=== PATIENT | female | born 1975 | race Hispanic/Latino ===

== ENCOUNTER 2017-04-14 05:02 | Emergency (ER) | payer SELFPAY ==
[~2017-04-14] VITALS: Ht 157.5 cm; Wt 56.8 kg
[2017-04-14 05:04] VITALS: BP 132/90; PULSE 98; RESP 24; O2SAT 98
--- NOTE | 2017-04-14 06:05 | ED.REPORT ---
HPI-Abd Pain F 40 and Over Date of Service Apr 14, 2017 ED Provider: Doc,Ed MD Patient is a 41 y/o female with a hx of DM presenting to the ER with her spouse c/o abdominal pain onset yesterday afternoon. The pain has been progressively worsening since last night and is localized to her LUQ. The patient reports to be experiencing UTI symptoms onset 3 days ago. Associated symptoms include dysuria, urinary urgency, and urinary frequency. The patient denies back pain, fever, nausea, diarrhea, hematochezia, vomiting, or any other symptoms. She does take pills for diabetes and has not taken any medication to relieve pain. She takes an aspirin daily. The patient does not smoke and has never experienced a kidney stone. Nursing Notes Stated Complaint: ABDOMINAL PAIN Chief Complaint: Female Abdominal Pain Nursing Notes Reviewed: Yes Allergies: Coded Allergies: No Known Allergies (Unverified , 04/14/17) Scheduled Nitrofurantoin Monohyd/M-Cryst (MacroBid) 100 Mg Capsule 100 MG PO BID Scheduled PRN Phenazopyridine (Phenazopyridine) 100 Mg Tablet 100 MG PO TID PRN PRN For Pain General Time Seen by MD: 06:04 Chief Complaint Abdominal pain Hx Obtained From: Patient Arrived By: Walk-in Sudden in Onset?: No Onset Occurred: Yesterday Symptom Duration: Since onset Location: : LUQ Quality: Same as prior Radiation: : Does not radiate Associated with: Reports: Urinary frequency, Urinary tract symptoms Risk Factors )( AAA Risk Stratification No Hypertension, No Smoking Risk factors reviewed Past Medical History Past Medical History Reports: Asthma, Diabetes mellitus Past Surgical History denies Smoking History Never Smoker Ambulatory Status Independent Review of Systems Constitutional: Denies: Fever Cardiovascular: Denies: Chest pain GI: Reports: Abdominal pain, Denies: Diarrhea, Hematochezia, Nausea, Vomiting Female: Reports: Dysuria, Urinary frequency, Urinary urgency, Urination increased Musculoskeletal: Denies: Back pain Complete sys rev & neg: except as marked. Physical Exam Vital Signs Vital Signs (First) Date Time Temp Pulse Resp B/P Pulse Ox O2 Delivery O2 Flow Rate FiO2 04/14/17 05:04 36.9 98 24 132/90 98 Room Air Initial VS: Reviewed, Vital signs normal Head / Eyes: Atraumatic, Normocephalic Neck: Supple, Full range of motion Skin: Warm, Dry, No cyanosis Neurologic: Alert, Oriented, Nonfocal Psychiatric: Mood/affect normal, Behavior normal, Normal thought content General/Constitutional: Awake, Alert, Cooperative Respiratory / Chest: Breath sounds NL, Breath sounds = bilat, No respiratory distress, No rales, No rhonchi, No wheezing, No stridor Cardiovascular: Heart sounds NL, No murmurs Heart Rate / Rhythm: Positive: Tachycardia (mild) Abdomen: Atraumatic Lower abdominal tenderness with some guarding Back: Inspection NL, Non-tender, No CVA tenderness Head / Eyes: Atraumatic, Normocephalic, PERRL Skin: Color NL, Warm, Dry Lower Extremity / Pelvis / MS: No edema Interpretation & Diagnostics Lab Results Interpretation Test 04/14/17 05:44 Urine Color Straw (YELLOW) Urine Appearance Cloudy (CLEAR,HAZY) Urine pH 7.0 (5.0-8.0) Urine Specific [place] 1.030 (1.003-1.035) Urine Protein 30mg/dL (NEG,TRACE) Urine Glucose (UA) >1000mg/dL (NEGATIVE) Urine Ketones 15mg/dL (NEGATIVE) Urine Occult Blood Moderate (NEGATIVE) Urine Nitrite Negative (NEGATIVE) Urine Bilirubin Negative (NEGATIVE) Urine Urobilinogen Normalmg/dL (NORMAL) Urine Leukocyte Esterase Moderate (NEGATIVE) Urine RBC 11-50/hpf (0-2) Urine WBC >50/hpf (0-5) Urine Epithelial Cells Moderate/hpf (NONE-MOD) Urine Crystals None seen (NONE SEEN) Urine Bacteria Many/hpf (NONE-FEW) Urine Hyaline Casts None/lpf (NONE) Urine Granular Casts None seen (NONE SEEN) Urine Waxy Casts None seen (NONE SEEN) Urine Red Blood Cell Casts None seen (NONE SEEN) Urine White Blood Cell Casts None seen (NONE SEEN) Urine Mucus None seen (None Seen) Urine Trichomonas None seen (NONE SEEN) Urine Yeast None (NONE SEEN) Urinalysis Comment None Urine Culture Reflexed Indicated Re-Eval/Medical Decision Re-Evaluation/Progress : Time of Eval: 06:20 Re-Evaluation/Progress Note: Pt rechecked. Discussed results and diagnosis with pt. Pt agrees and understands to treatment plan. All questions answered at this time. Counseled Regarding: Diagnosis, Lab results, Need for follow-up, When/why to return to ED Discharge & Departure Primary Impression: Urinary tract infection Urinary tract infection type: acute cystitis Hematuria presence: with hematuria Qualified Code: N30.01 - Acute cystitis with hematuria Disposition: Home Discharge Condition All VS Reviewed: Yes Condition: Stable Patient Instructions: Urinary Tract Infection in Women (DC) Additional Instructions: Lots of fluid. Antibiotic (Macrobid) as directed. Ibuprofen 800mg every 8 hours as needed for pain. Phenazopiridine as needed for painful urination. Follow up right away for fever or excessive vomiting. Follow-up otherwise as needed. Referrals: Kevin Reynolds MD (PCP) [place] Attestation Portions of this note were transcribed by Candelaria Cueva & Tricia Fong. I, Dr. Horan personally performed the history, physical exam and medical decision-making; I reviewed and confirmed the accuracy of the information in the transcribed note. Signed by: Candelaria Fong., Jo[place], 04/14/2017 and 07:29 AM. copies to: Kevin Reynolds MD, Kirk H MD Apr 14, 2017 06:05 Candelaria Cueva Apr 14, 2017 06:15 TRICIA FONG Apr 14, 2017 07:22
[2017-04-14 06:08] LABS: COLOR,URINE STRAW (YELLOW)
[2017-04-14 06:09] LABS: APPEARANCE,URINE CLOUDY (CLEAR,HAZY); OCCULT BLOOD,URINE MODERATE (NEGATIVE); UROBILINOGEN,URINE NORMAL (NORMAL)
[2017-04-14] MEDS ORDERED: Nitrofurantoin Monohyd-Macrocryst 100 mg Capsule PO ONE (06:15)
[2017-04-14] MEDS ORDERED: Phenazopyridine 97.5 mg Tablet PO ONE (06:15)
[2017-04-14] MEDS ORDERED: NITR100 PO (06:16)
[2017-04-14] MEDS ORDERED: PHEN-773 PO (06:16)
== END 2017-04-14 07:00 | disposition home or self-care (01) ==
LOC: SED 05:03
DX: N30.01 Acute cystitis with hematuria (principal); B96.20 Unspecified Escherichia coli [E. coli] as the cause of diseases classified elsewhere; J45.909 Unspecified asthma, uncomplicated; E11.9 Type 2 diabetes mellitus without complications; Z79.82 Long term (current) use of aspirin